=== PATIENT | male | born 1980 ===

== ENCOUNTER 2021-08-10 08:54 | Day surgery (SDC) | payer OTHER | END 2021-08-10 19:25 | disposition home or self-care (01) | LOC: CIR.AMB 08:54 | PROVIDERS: ATTEND Colon & Rectal Surgery | DX: K64.2 Third degree hemorrhoids (principal); Z86.16 Personal history of COVID-19; Z87.891 Personal history of nicotine dependence; Z20.822 Contact with and (suspected) exposure to COVID-19 ==